=== PATIENT | male | born 1990 | race Caucasian/White ===

== ENCOUNTER 2021-02-22 09:18 | Emergency (ER) | payer MEDICAID, SELFPAY ==
[2021-02-22 09:19] VITALS: BP 159/77; PULSE 67; RESP 15; TEMP 36.2; O2SAT 100; BMI 25.1
--- NOTE | 2021-02-22 09:33 | EKG12_ITS ---
Test Reason : CP Blood Pressure : / mmHG Vent. Rate : 056 BPM Atrial Rate : 056 BPM P-R Int : 154 ms QRS Dur : 094 ms QT Int : 396 ms P-R-T Axes : 077 077 053 degrees QTc Int : 382 ms Sinus bradycardia Otherwise normal ECG Confirmed by ORVILLE DE PAZ, SHAD ([id number]), digital editor LEON FRANCO ([id number]) on 02/24/2021 1:54:25 PM Referred By: RICHELLE Confirmed By:SHAD JACINTO MD
--- NOTE | 2021-02-22 09:33 | RAD_ITS ---
STUDY: X-RAY CHEST REASON FOR EXAM: Male, 30 years old. Chest pain TECHNIQUE: Single AP portable view of the chest. COMPARISON: None. FINDINGS: EKG electrodes are seen. Hyperinflation. The lungs are clear. There is no demonstrated pleural abnormality. Normal size heart. Normal mediastinum and pooja. Normal visualized pulmonary arteries. Normal visualized aortic arch and descending thoracic aorta. Normal visualized thoracic spine. Normal visualized ribs, clavicles, and shoulders. There is no demonstrated abnormality of the visualized soft tissue structures of the upper abdomen. RAD/Chest 1 View (Portable) IMPRESSION: Hyperinflation. The lungs are clear Electronically Signed: Shola Fay MD at 10:28 EDT , Service support ,
--- NOTE | 2021-02-22 09:43 | EX.ED.DYSGE1 ---
HPI History of Present Illness Chief Complaint: Chest Pain Informant: patient Narrative Narrative: Patient states that since Sunday he has had intermittent brief episodes of lightheadedness. He describes it as feeling off balance. Is worse with movement at times. He notes nasal congestion. He states that some point though he is able to go out and go for a run without any problem. He also notes that he has developed a pain in the left side of his chest. It is also intermittent and very brief. It is sometimes worse with movement and sometimes worse with touch and with deep breathing. It is not there all the time.He denies any syncope or near syncope.He notes that he has been eating and drinking well and generally stays very well-hydrated [facility] Medical History (Updated 02/22/21 @ 11:[address] Juan Uribe DO) Asthma Knowledge deficit on leg surgery Allergy/AdvReac Type Severity Reaction Status Date / Time No Known Allergies Allergy Verified 02/22/21 09:22 Social History (Updated 02/22/21 @ 09:[address] Juan Uribe DO) leisure activities: sports Smoking Status: Never smoker substance use type: does not use ROS ROS ED Constitutional Constitutional ED: Reports other Details: Lightheadedness ; Denies chills or weight loss Eyes Eyes: Denies change in vision or diplopia ENT ENT ED: Reports other Details: Nasal congestion ; Denies ear pain, rhinorrhea or sore throat Cardiovascular Cardiovascular: Reports chest pain; Denies orthopnea, palpitations or racing heartbeat Respiratory/Chest Respiratory/Chest: Denies cough, dyspnea or orthopnea Gastrointestinal Gastrointestinal: Denies abdominal pain, diarrhea, nausea or vomiting Genitourinary Genitourinary ED: Denies dysuria, hematuria or urinary frequency Musculoskeletal Musculoskeletal: Denies arthralgias or myalgias Integumentary Denies abscess or rash Neurologic Neurologic: Denies headache(s) or weakness Psychiatric Psychiatric: Denies anxiety, depression, suicidal ideation or suicidal thoughts Endocrine Endocrinology: Denies polydipsia, polyphagia or polyuria Allergic/Immunologic Allergic/Immunologic ED: Denies mouth swelling, tongue swelling or urticaria EXAM Physical Exam Const Vital Signs: 02/22/21 09:19 02/22/21 09:41 02/22/21 09:51 Temperature 97.2 F L Temperature Source Temporal Pulse Rate 67 Pulse Rate [Lying] 64 Pulse Rate [Sitting] 61 Pulse Rate [Standing] 73 Respiratory Rate 15 Respiratory Effort Normal Blood Pressure 159/77 H Blood Pressure [Lying] 129/88 H Blood Pressure [Sitting] 146/96 H Blood Pressure [Standing] 155/99 H Blood Pressure Mean 104 Blood Pressure Mean [Lying] 101 Blood Pressure Mean [Sitting] 112 Blood Pressure Mean [Standing] 117 Pulse Ox 100 Oxygen Delivery Method Room Air Positive well nourished and well developed General Appearance ED: well developed HEENT Reports normocephalic, head/scalp atraumatic and moist mucous membranes HEENT Narrative: The right tympanic membrane has fluid behind it but there is no erythema or bulging.Nasal congestion noted Eyes PERRL and EOMs intact bilaterally Neck no lymphadenopathy, supple and no JVD Resp normal respiratory effort and clear to auscultation bilaterally Cardio regular rate, regular rhythm and no murmurs GI normal to inspection, nondistended, normoactive bowel sounds and non-tender Palpation: soft Back/Spine no CVA tenderness and normal ROM Extremity normal to inspection General Extremety ED: Negative for edema General Extremity: Negative for edema Neuro oriented x3 and CN's II-XII intact bilaterally Sensorium / Orientation: alert Motor Exam: strength 5/5 throughout Psych mental status grossly normal Mood & Affect: Negative for depressed or tearful Skin no rashes or lesions noted and no wounds MDM MDM MDM Narrative Medical decision making narrative: I interpretation of the plain film of the chest x-ray is no acute process. Basic blood work including D-dimer and troponin were negative.I think the chest pain is most likely chest wall related. As far as the lightheadedness this could be from eustachian tube dysfunction as demonstrated from his serous otitis and nasal congestion. Patient will be discharged home instructions to follow-up with primary care return if worsening or concerns Lab Data Attestation: I reviewed the patient's lab results. Labs: Laboratory Results - last 24 hr 02/22/21 02/22/21 02/22/21 09:45 09:45 09:45 WBC 6.2 RBC 4.57 L Hgb 14.1 Hct 41.9 MCV 91.7 MCH 30.9 MCHC 33.7 RDW Std Deviation 42.7 RDW Coeff of Song 12.7 Plt Count 287 MPV 9.6 Immature Gran % (Auto) 0.200 Neut % (Auto) 60.1 Lymph % (Auto) 27.8 [place] % (Auto) 6.1 Eos % (Auto) 4.0 Baso % (Auto) 1.8 H Absolute Neuts (auto) 3.7 Absolute Lymphs (auto) 1.72 Nucleated RBC % 0 D-Dimer Quant (PE/DVT) <= 0.27 Sodium 137 Potassium 4.0 Chloride 104 Carbon Dioxide 29.0 Anion Gap 4 L BUN 16 Creatinine 0.94 Estim Creat Clear Calc 113.86 Est GFR (MDRD) Af Amer 119 Est GFR (MDRD) Non-Af 99 BUN/Creatinine Ratio 17.0 Glucose 110 H Calcium 9.3 Total Bilirubin 0.40 AST 13 L ALT 25 Alkaline Phosphatase 64 Troponin I < 0.015 Total Protein 7.9 Albumin 4.4 Globulin 3.5 Albumin/Globulin Ratio 1.3 Radiography Diagnostic Testing: Radiology Impression Chest X-Ray 02/22/21 09:33 IMPRESSION: Hyperinflation. The lungs are clear Electronically Signed: Shola Fay MD at 10:28 EDT , Service support , EKG Initial EKG: Attestation: I personally reviewed and interpreted this EKG as follows: Comments: EKG demonstrates a sinus bradycardia at a rate of 56. No concerning features of ACS or ectopy. Discharge Plan Triage Chief Complaint: Chest Pain ED Provider: Juan Uribe Dx/Rx/DC Orders Clinical Impression: Chest pain, Acute serous otitis media, Acute dysfunction of right eustachian tube Instructions: ED Chest Pain, Noncardiac Primary Care Provider: Care Physician,No Primary Referrals: Hu Weber MD [STAFF PHYSICIAN] - As Needed (Call if you wish to follow-up with primary care and establish care with them) Care Physician,No Primary [Primary Care Provider] - Disposition Disposition: Home, self care
[2021-02-22 09:51] VITALS: BP 129/88; BP 146/96; BP 155/99; PULSE 61; PULSE 64; PULSE 73
[2021-02-22 09:51] LABS: Absolute Lymphocyte Count 1.72 X10^3/uL (0.83-4.51); Absolute Neutrophil Count 3.7 X10^3/uL (2.0-7.7); Basophil# 0.11 X10^3/uL; Basophil% 1.8 % (0-1); Eosinophil# 0.25 X10^3/uL; Hematocrit 41.9 % (40-54); Hemoglobin 14.1 g/dL (13.0-16.5); Lymphocyte # 1.72 X10^3/ul (0.83-4.51); Lymphocyte % 27.8 % (19-41); Mean Corp Hgb Conc 33.7 g/dL (32-36); Mean Corpuscular Hgb 30.9 pg (27.0-32.0); Mean Corpuscular Volume 91.7 fL (80-94); Mean Platelet Vol. 9.6 fl (6.2-12.0); Monocyte# 0.38 X10^3/uL; Monocyte% 6.1 % (0-10); NRBC Flagged by Analyzer 0 % (0-5); Neutrophil # 3.71 X10^3/uL (2.7-7.7); Neutrophil % 60.1 % (47-70); Platelet Count 287 K/mm3 (150-450); RBC Distribution Width CV 12.7 % (11.6-14.6); RBC Distribution Width SD 42.7 fl (35.1-43.9); Red Blood Count 4.57 M/mm3 (4.6-6.2); White Blood Count 6.2 K/mm3 (4.4-11.0)
[2021-02-22 10:02] LABS: D-Dimer Quantitative (DVT/PE) <= 0.27 FEU/ug/m (0.27-0.49)
[2021-02-22 10:06] LABS: ALB/GLOB Ratio 1.3 RATIO (0.9-2.4); AST(SGOT) 13 U/L (15-37); Alanine Aminotransfer ALT/SGPT 25 U/L (16-61); Albumin, Serum 4.4 g/dL (3.2-5.0); Alkaline Phosphatase 64 U/L (45-117); Anion Gap 4 (5-15); BUN 16 mg/dL (7-18); Calcium,Total 9.3 mg/dL (8.5-10.1); Chloride 104 mmol/L (98-107); Creatinine, Serum 0.94 mg/dL (0.70-1.30); EST Glomerular Filtration Rate 99 mL/min (>60); Est Glom Filt Rate - Afr Amer 119 mL/min (>60); Estimated Creatinine Clearance 113.86 ml/min; Globulin 3.5 g/dL (2.2-4.2); Glucose 110 mg/dL (74-106); Protein, Total 7.9 g/dL (6.4-8.2); Sodium Level 137 mmol/L (136-145)
--- NOTE | 2021-02-22 10:28 | CM.ED ---
[facility] Note Referral: Case Find Reason for Referral: NO Primary Care Physican (PCP) [facility] noted on tracker board that patient has no PCP. SW talked to patient and he indicated he was from [place]. He confirms he has no PCP. SW provided him with PCP packet. Patient indicated he is comfortable selecting PCP. He voices no other concerns or issues. Chanel BARTLETT
[2021-02-22 11:18] VITALS: BP 129/70; PULSE 60; TEMP -8.8; TEMP 16; O2SAT 100
== END 2021-02-22 11:19 | disposition home or self-care (01) ==
PROVIDERS: Emergency Provider Emergency Medicine
DX: R07.9 Chest pain, unspecified (principal); H65.00 Acute serous otitis media, unspecified ear; H69.81 Other specified disorders of Eustachian tube, right ear; R09.81 Nasal congestion
CPT/HCPCS: 71045; 80053; 84484; 85025; 85379; 87426; 93005; 99285; A4216

== ENCOUNTER 2023-06-20 09:17 | Emergency (ER) | payer MEDICAID, SELFPAY ==
[2023-06-20 09:18] VITALS: BP 144/91; PULSE 71; RESP 16; TEMP 36.4; O2SAT 100; BMI 23.6
--- NOTE | 2023-06-20 09:29 | EDS_ITS ---
HPI History of Present Illness Chief Complaint: Lower Extremity Injury Detail of Chief Complaint: Right ankle pain Informant: patient Onset/Context/Timing Onset: Yesterday Narrative Narrative: Patient presents secondary to right ankle pain. 11 or 12 years ago he had surgery on his right ankle and had screws placed. He states he had broken it falling off of a building. Yesterday he went knee boarding. When he was finished he had pain in his ankle with difficulty ambulating. He states that pain seems to be improving today but he still has problems with dorsiflexion. He does want to have it checked to ensure the hardware was intact and he had not damaged his ankle. No paresthesias. [facility] Medical History Asthma Knowledge deficit on leg surgery Allergy/AdvReac Type Severity Reaction Status Date / Time No Known Allergies Allergy Verified 02/22/21 09:22 Social History leisure activities: sports Smoking Status: Never smoker substance use type: does not use ROS ROS ED Constitutional Constitutional ED: Denies chills or fever(s) Eyes Eyes: Denies discharge from eye(s) ENT ENT ED: Denies discharge from eye(s) Cardiovascular Cardiovascular: Denies chest pain Respiratory/Chest Respiratory/Chest: Denies cough or dyspnea Gastrointestinal Gastrointestinal: Denies abdominal pain or vomiting Musculoskeletal Musculoskeletal: Reports extremity pain; Denies back pain Integumentary Denies Abrasions or rash Neurologic Neurologic: Denies paresthesias or weakness Psychiatric Psychiatric: Denies anxiety or depression Allergic/Immunologic Allergic/Immunologic ED: Denies lip swelling or urticaria EXAM Physical Exam Const Vital Signs: 06/20/23 09:18 Temperature 97.5 F L Temperature Source Temporal Pulse Rate 71 Respiratory Rate 16 Blood Pressure 144/91 H Blood Pressure Mean 108 Pulse Ox 100 Oxygen Delivery Method Room Air Positive well nourished and well developed General Appearance ED: well developed HEENT normocephalic and atraumatic Neck full ROM Chest Wall inspection of chest normal Resp normal respiratory effort Cardio regular rate and regular rhythm Extremity Extremity Narrative: Well-healed surgical incision on the medial malleolus of the right ankle. No significant edema. Mild tenderness. Strong distal pulses with normal cap refill. No tenderness at the knee or proximal fibula. Psych mental status grossly normal Skin no wounds MDM MDM MDM Narrative Medical decision making narrative: Right ankle x-rays obtained to evaluate for fracture, hardware displacement. Treatment and Re-Evaluation Narrative: Right ankle x-rays per my interpretation reveal screws to the medial malleolus to be intact. He has an old well-healed distal fibula fracture. No acute findings noted. Test results discussed with the patient. He will be given local orthopedics referral for follow-up if needed. I did recommend Tylenol or ibuprofen as needed for pain. Discharge Plan Triage Chief Complaint: Lower Extremity Injury ED Provider: Debra Grande Dx/Rx/DC Orders Clinical Impression: Right ankle sprain Instructions: ED Ankle Sprain (Adult) Primary Care Provider: Care Physician,No Primary Referrals: Hilario Medrano DO [Med Staff - Active Staff] - As Needed Care Physician,No Primary [Primary Care Provider] - Disposition Disposition: Home, Self Care
--- NOTE | 2023-06-20 09:33 | RAD_ITS ---
STUDY: X-RAY - RIGHT ANKLE REASON FOR EXAM: Male, 33 years old. Pain following injury. TECHNIQUE: 3 view(s) of the ankle. COMPARISON: None. FINDINGS: Healed fracture through the distal shaft of the ulna. Prior screw fixation of the medial malleolus. Normal tibiotalar articulation and ankle mortise. Normal visualized talus and calcaneus. The visualized subtalar, talonavicular, calcaneocuboid and tarsal articulations are normal. The soft tissue structures are unremarkable. RAD/Ankle min 3 Views IMPRESSION: Healed fractures. No acute abnormality is seen. Electronically Signed: Shola Fay MD at 10:08 EDT ,
== END 2023-06-20 10:09 | disposition home or self-care (01) ==
PROVIDERS: Emergency Provider Emergency Medicine; Visit Provider Emergency Medicine
DX: S93.401A Sprain of unspecified ligament of right ankle, initial encounter (principal); Y93.17 Activity, water skiing and wake boarding
CPT/HCPCS: 73610; 99282